=== PATIENT | male | born 1985 | race Caucasian/White ===

== ENCOUNTER 2018-11-07 13:52 | Emergency (ER) | payer SELFPAY ==
[~2018-11-07] VITALS: Ht 177.8 cm; Wt 85.4 kg
[2018-11-07 15:27] LABS: APPEARANCE, URINE CLEAR (CLEAR); BACTERIA, URINE AUTO NEGATIVE (NEGATIVE); BILIRUBIN, URINE AUTO NEGATIVE (NEGATIVE); BLOOD, URINE BLOOD NEGATIVE (NEGATIVE); COLOR, URINE YELLOW (YELLOW); GLUCOSE, URINE (UA) AUTO NEGATIVE (NEGATIVE); KETONE, URINE AUTO NEGATIVE (NEGATIVE); LEUKOCYTE ESTERASE, URINE AUTO TRACE (NEGATIVE); MUCUS, URINE SMALL (NEGATIVE); NITRITE, URINE AUTO NEGATIVE (NEGATIVE); PROTEIN, URINE AUTO NEGATIVE (NEGATIVE); RBC, URINE AUTO 0 /HPF (0-3); SPECIFIC GRAVITY URINE AUTO 1.019 (1.002-1.035); SQUAMOUS EPITHELIAL CELL UR AU 0 /HPF (0-6); UROBILINOGEN, URINE AUTO 0.2 mg/dL (0.0-2.0); WBC, URINE AUTO 1 /HPF (0-3)
[2018-11-07 15:30] LABS: BASO # 0.1 10^3/uL (0.0-0.2); BASO % 0.6 % (0.0-1.0); EOS # 0.2 10^3/uL (0.0-0.50); EOS % 1.9 % (0.0-3.0); HEMATOCRIT 46.7 % (42.0-52.0); HEMOGLOBIN 16.2 g/dl (13.5-17.5); LYMPH # 2.9 10^3/uL (1.5-4.5); LYMPH % 28.5 % (24.0-44.0); MEAN CORPUSCULAR HEMOGLOBIN 30.8 pg (27.0-33.0); MEAN CORPUSCULAR HGB CONC 34.7 g/dl (32.0-36.5); MEAN CORPUSCULAR VOLUME 88.8 fl (80.0-96.0); MONO # 0.7 10^3/uL (0.0-0.8); MONO % 6.6 % (0.0-5.0); NEUTROPHILS # 6.4 10^3/uL (1.8-7.7); NEUTROPHILS % 62.1 % (36.0-66.0); PLATELET COUNT, AUTOMATED 231 10^3/uL (150-450); RED BLOOD COUNT 5.26 10^6/uL (4.30-6.10); WHITE BLOOD COUNT 10.3 10^3/uL (4.0-10.0)
[2018-11-07 15:58] LABS: ALBUMIN 4.3 GM/DL (3.2-5.2); ALT/SGPT 19 U/L (12-78); AMYLASE 58 U/L (25-115); BILIRUBIN,DIRECT 0.2 MG/DL (0.0-0.2); BILIRUBIN,TOTAL 0.4 MG/DL (0.2-1.0); BLOOD UREA NITROGEN 10 MG/DL (7-18); CALCIUM LEVEL 8.9 MG/DL (8.5-10.1); CARBON DIOXIDE LEVEL 30 MEQ/L (21-32); CHLORIDE LEVEL 103 MEQ/L (98-107); CREATININE FOR GFR 1.06 MG/DL (0.70-1.30); GLOMERULAR FILTRATION RATE > 60.0 (>60); GLUCOSE, FASTING 80 MG/DL (70-100); LIPASE 367 U/L (73-393); POTASSIUM SERUM 4.1 MEQ/L (3.5-5.1); SODIUM LEVEL 139 MEQ/L (136-145); TOTAL PROTEIN 7.5 GM/DL (6.4-8.2)
[2018-11-07 17:15] VITALS: BP 110/70
== END 2018-11-07 17:22 | disposition home or self-care (01) ==
LOC: M ED 13:52
DX: S39.011A Strain of muscle, fascia and tendon of abdomen, initial encounter (principal); Y99.9 Unspecified external cause status; Y92.9 Unspecified place or not applicable

== ENCOUNTER → 2019-09-06 | Outpatient (CLI) | payer SELFPAY | LOC: M OUTALCOH 08:06 | PROVIDERS: ATTEND Psychiatry & Neurology Psychiatry | DX: Z03.89 Encounter for observation for other suspected diseases and conditions ruled out (principal) ==

== ENCOUNTER 2019-09-11 09:57 | Outpatient (RCR) | payer SELFPAY | END 2019-09-14 | LOC: M OUTALCOH 09:57 | PROVIDERS: ATTEND Psychiatry & Neurology Psychiatry | DX: F12.10 Cannabis abuse, uncomplicated (principal) ==

== ENCOUNTER 2019-10-10 16:00 | Outpatient (RCR) | payer SELFPAY | END 2019-10-14 | LOC: M OUTALCOH 16:00 | PROVIDERS: ATTEND Psychiatry & Neurology Psychiatry | DX: F12.10 Cannabis abuse, uncomplicated (principal) ==

== ENCOUNTER → 2019-11-14 | Outpatient (RCR) | payer SELFPAY | LOC: M OUTALCOH 10-17 15:01 | PROVIDERS: ATTEND Psychiatry & Neurology Psychiatry | DX: F12.20 Cannabis dependence, uncomplicated (principal) ==

== ENCOUNTER 2019-12-13 14:57 | Outpatient (RCR) | payer SELFPAY | END 2019-12-15 | LOC: M OUTALCOH 14:57 | PROVIDERS: ATTEND Psychiatry & Neurology Psychiatry | DX: F12.20 Cannabis dependence, uncomplicated (principal) ==

== ENCOUNTER 2020-01-10 08:58 | Outpatient (RCR) | payer SELFPAY | END 2020-01-13 | LOC: M OUTALCOH 08:58 | PROVIDERS: ATTEND Psychiatry & Neurology Psychiatry | DX: F12.20 Cannabis dependence, uncomplicated (principal) ==

== ENCOUNTER → 2020-02-13 | Outpatient (RCR) | payer OTHER, SELFPAY | LOC: M OUTALCOH 01-30 08:10 | PROVIDERS: ATTEND Psychiatry & Neurology Addiction Medicine | DX: F12.20 Cannabis dependence, uncomplicated (principal) ==

== ENCOUNTER 2020-03-05 10:00 | Outpatient (RCR) | payer OTHER | END 2020-03-14 | LOC: M OUTALCOH 10:00 | PROVIDERS: ATTEND Psychiatry & Neurology Addiction Medicine | DX: F12.20 Cannabis dependence, uncomplicated (principal) ==

== ENCOUNTER 2020-09-25 20:09 | Emergency (ER) | payer OTHER ==
[~2020-09-25] VITALS: Ht 177.8 cm; Wt 96.8 kg
[2020-09-25] MEDS ORDERED: BOOSTRIX/ADACEL VACCINE (DIPHTH/PERTUSS/ACELL/TETANUS) 0.5ML SYR IM ONE (21:30)
[2020-09-25] MEDS ORDERED: DERMABOND TOPICAL SKIN ADHESIVE TOP ONE (21:30)
[2020-09-25 21:43] VITALS: BP 122/58
== END 2020-09-25 21:48 | disposition home or self-care (01) ==
LOC: M ED 20:09
DX: S61.211A Laceration without foreign body of left index finger without damage to nail, initial encounter (principal); W26.8XXA Contact with other sharp object(s), not elsewhere classified, initial encounter; Y92.89 Other specified places as the place of occurrence of the external cause; Y93.9 Activity, unspecified; Y99.0 Civilian activity done for income or pay; F12.10 Cannabis abuse, uncomplicated; Z88.0 Allergy status to penicillin; Z88.2 Allergy status to sulfonamides

== ENCOUNTER 2021-07-21 08:34 | Emergency (ER) | payer OTHER ==
[~2021-07-21] VITALS: Ht 180.3 cm; Wt 88.3 kg
[2021-07-21] MEDS ORDERED: BENA25CA4 PO (08:48)
[2021-07-21] MEDS ORDERED: predniSONE 20 MG TAB PO ONE (09:50)
[2021-07-21] MEDS ORDERED: VALT1TAB PO (09:51)
[2021-07-21] MEDS ORDERED: MEDR4PAK PO (09:51)
[2021-07-21 10:11] VITALS: BP 124/94
== END 2021-07-21 10:12 | disposition home or self-care (01) ==
LOC: M ED 08:34
DX: L50.9 Urticaria, unspecified (principal); F12.10 Cannabis abuse, uncomplicated; Z88.0 Allergy status to penicillin; Z88.2 Allergy status to sulfonamides
CPT/HCPCS: 99283; J7512

== ENCOUNTER 2021-07-31 20:18 | Emergency (ER) | payer OTHER ==
[~2021-07-31] VITALS: Ht 180.3 cm; Wt 88.1 kg
[~2021-07-31 20:18] MED LIST: BENA25CA4 PO; MEDR4PAK PO; VALT1TAB PO
[2021-07-31 20:20] VITALS: BP 139/89
== END 2021-08-01 00:53 | disposition left against medical advice (07) ==
LOC: M ED 20:18
DX: Z53.21 Procedure and treatment not carried out due to patient leaving prior to being seen by health care provider (principal)

== ENCOUNTER → 2021-08-28 | Outpatient (CLI) | payer OTHER | LOC: M LABSMTC 10:38 | PROVIDERS: ATTEND Pediatrics | DX: Z20.822 Contact with and (suspected) exposure to COVID-19 (principal) | CPT/HCPCS: C9803; U0003 ==

== ENCOUNTER → 2022-01-30 | Outpatient (CLI) | payer OTHER | LOC: M OUTALCOH 07:36 | PROVIDERS: ATTEND Psychiatry & Neurology Psychiatry | DX: F10.10 Alcohol abuse, uncomplicated (principal) ==

== ENCOUNTER 2022-02-09 14:00 | Outpatient (RCR) | payer OTHER | END 2022-02-12 | LOC: M OUTALCOH 14:00 | PROVIDERS: ATTEND Psychiatry & Neurology Psychiatry | DX: F10.20 Alcohol dependence, uncomplicated (principal); F12.10 Cannabis abuse, uncomplicated; F17.200 Nicotine dependence, unspecified, uncomplicated ==

== ENCOUNTER → 2022-02-12 | Outpatient (CLI) | payer OTHER | LOC: M WUC 13:23 | PROVIDERS: ATTEND Registered Nurse | DX: M25.571 Pain in right ankle and joints of right foot (principal); M25.511 Pain in right shoulder ==

== ENCOUNTER 2022-03-13 11:00 | Outpatient (RCR) | payer OTHER | END 2022-03-14 | LOC: M OUTALCOH 11:00 | PROVIDERS: ATTEND Psychiatry & Neurology Psychiatry | DX: F10.20 Alcohol dependence, uncomplicated (principal); F12.10 Cannabis abuse, uncomplicated; F17.200 Nicotine dependence, unspecified, uncomplicated ==

== ENCOUNTER 2022-04-06 16:00 | Outpatient (RCR) | payer OTHER | END 2022-04-14 | LOC: M OUTALCOH 16:00 | PROVIDERS: ATTEND Psychiatry & Neurology Psychiatry | DX: F10.20 Alcohol dependence, uncomplicated (principal); F12.10 Cannabis abuse, uncomplicated; F17.200 Nicotine dependence, unspecified, uncomplicated ==

== ENCOUNTER 2022-05-11 16:00 | Outpatient (RCR) | payer OTHER | END 2022-05-14 | LOC: M OUTALCOH 16:00 | PROVIDERS: ATTEND Psychiatry & Neurology Psychiatry | DX: F10.20 Alcohol dependence, uncomplicated (principal); F12.10 Cannabis abuse, uncomplicated; F17.200 Nicotine dependence, unspecified, uncomplicated ==

== ENCOUNTER 2022-06-11 12:56 | Outpatient (RCR) | payer OTHER | END 2022-06-14 | LOC: M OUTALCOH 12:56 | PROVIDERS: ATTEND Psychiatry & Neurology Psychiatry | DX: F10.20 Alcohol dependence, uncomplicated (principal); F12.10 Cannabis abuse, uncomplicated; F17.200 Nicotine dependence, unspecified, uncomplicated ==

== ENCOUNTER 2022-06-23 16:00 | Outpatient (RCR) | payer OTHER | END 2022-07-15 | LOC: M OUTALCOH 16:00 | PROVIDERS: ATTEND Psychiatry & Neurology Psychiatry | DX: F10.20 Alcohol dependence, uncomplicated (principal); F12.10 Cannabis abuse, uncomplicated; F17.200 Nicotine dependence, unspecified, uncomplicated ==

== ENCOUNTER 2024-04-02 18:44 | Emergency (ER) | payer OTHER, SELFPAY ==
[~2024-04-02] VITALS: Ht 177.8 cm; Wt 88.2 kg
[2024-04-02 18:46] VITALS: TEMP 96.7
[2024-04-02 20:26] LABS: Trichomonas vaginalis (AMP) NOT DETECTED (NEGATIVE)
[2024-04-02 20:50] LABS: GC DNA AMPLIFICATION NEGATIVE (NEGATIVE)
[2024-04-02] MEDS ORDERED: LEVO1TAB39 PO (21:19)
[2024-04-02] MEDS: LevoFLOXacin 500 MG TABLET PO ONE (21:28)
[2024-04-02 21:32] VITALS: BP 128/72; O2SAT 98
== END 2024-04-02 21:33 | disposition home or self-care (01) ==
LOC: M ED 18:44
DX: N45.1 Epididymitis (principal); F12.10 Cannabis abuse, uncomplicated; Z88.0 Allergy status to penicillin; Z88.2 Allergy status to sulfonamides; Z79.899 Other long term (current) drug therapy